=== PATIENT | female | born 1955 | race Caucasian/White ===

== ENCOUNTER → 2017-12-23 | Outpatient (REF) | payer MEDICARE | END | disposition home or self-care (01) | LOC: MAMMO 09:15 | PROVIDERS: ATTEND Nurse Practitioner Adult Health | DX: Z12.31 Encounter for screening mammogram for malignant neoplasm of breast (principal); N95.1 Menopausal and female climacteric states ==

== ENCOUNTER → 2018-06-01 | Outpatient (REF) | payer MEDICARE, MEDICAID ==
[2018-06-01 12:13] LABS: URINE BILIRUBIN - DIPSTICK NEGATIVE (NEGATIVE); URINE BLOOD DIPSTICK MODERATE (NEGATIVE); URINE COLOR YELLOW; URINE GLUCOSE - DIPSTICK NEGATIVE (NEGATIVE); URINE KETONE NEGATIVE (NEGATIVE); URINE LEUK ESTERASE NEGATIVE (NEGATIVE); URINE NITRITE - DIPSTICK NEGATIVE (Negative); URINE PROTEIN - DIPSTICK NEGATIVE (NEG-TRACE); URINE SPECIFIC GRAVITY 1.025; URINE UROBILINOGEN - DIPSTICK 0.2 E.U./dL (0.2)
[2018-06-01 12:21] LABS: HEMATOCRIT 47.2 % (37.0-47.0); IMMATURE GRANULOCYTES 0.8 % (0.0-5.0); MEAN CELL VOLUME 90.6 fL CALC (80.0-100.0); MEAN CORPUSCULAR HGB 28.8 pG CALC (26.0-32.0); MEAN CORPUSCULAR HGB CONC 31.8 g/L CALC (32.0-36.0); NEUT# 6.46 thou/uL (2.00-7.15); RED BLOOD COUNT 5.21 mill/uL (4.20-5.60); RED CELL DISTRI WIDTH 14.1 % (11.5-15.5)
[2018-06-01 12:34] LABS: URINE SQUAMOUS EPITHELIAL CELL MODERATE EPI/hpf (0-FEW)
[2018-06-01 12:45] LABS: ANION GAP 16 (6-22 (CALC)); BUN 11 mg/dL (7-17); BUN/CREATININE RATIO 15 (12-20 (CALC)); CALCULATED LDLCHOLESTEROL 98 mg/dL (62-129 (CALC)); CARBON DIOXIDE 24 mmol/l (22-30); CHLORIDE 106 mmol/l (95-108); CHOLESTEROL HDL RATIO 4.3 (<4.4 (CALC)); CREATININE 0.8 mg/dL (0.5-1.0); GFR > 60 ML/MIN (>=60 (CALC)); GFR FOR AFR.AMER. > 60 ML/MIN (>=60 (CALC)); HDL CHOLESTEROL 39 mg/dL (>=40); POTASSIUM 5.1 mmol/l (3.5-5.1); SODIUM 140 mmol/l (137-146); TOTAL CHOLESTEROL 169 mg/dl (0-199); TOTAL TRIGLYCERIDES 160 mg/dl (30-149); VLDL CHOLESTROL 32 mg/dl (1-41 (CALC))
== END | disposition home or self-care (01) ==
LOC: LAB 11:05
PROVIDERS: ATTEND Nurse Practitioner Family
DX: E78.2 Mixed hyperlipidemia (principal); I10 Essential (primary) hypertension; R10.10 Upper abdominal pain, unspecified

== ENCOUNTER → 2018-06-06 | Outpatient (REF) | payer MEDICARE, MEDICAID | END | disposition home or self-care (01) | LOC: MRI 10:02 | DX: Z86.73 Personal history of transient ischemic attack (TIA), and cerebral infarction without residual deficits (principal); R41.3 Other amnesia; I65.23 Occlusion and stenosis of bilateral carotid arteries; G81.91 Hemiplegia, unspecified affecting right dominant side ==

== ENCOUNTER → 2018-06-08 | Outpatient (REF) | payer MEDICARE, MEDICAID | END | disposition home or self-care (01) | LOC: CT 08:34 | PROVIDERS: ATTEND Nurse Practitioner Family | DX: R10.9 Unspecified abdominal pain (principal); K57.30 Diverticulosis of large intestine without perforation or abscess without bleeding | CPT/HCPCS: Q9967 ==

== ENCOUNTER 2018-08-05 16:39 | Emergency (ER) | payer MEDICARE, MEDICAID ==
[~2018-08-05] VITALS: Ht 152.4 cm; Wt 70.0 kg
[2018-08-05 16:39] VITALS: BP 133/74
[2018-08-05] MEDS ORDERED: BENAZEPRIL10 MG PO (16:51)
[2018-08-05] MEDS ORDERED: LIPITOR20 M1 PO (16:52)
[2018-08-05] MEDS ORDERED: KLONOPIN0.5 M1 PO (16:52)
[2018-08-05] MEDS ORDERED: ASPIRIN325 MG PO (16:53)
[2018-08-05] MEDS ORDERED: CLOPIDOGREL75 MG PO (16:53)
[2018-08-05] MEDS ORDERED: AMLODIPINE5 MG PO (16:53)
[2018-08-05] MEDS ORDERED: BENAZEPRIL HCL40 MG PO (17:16)
[2018-08-05] MEDS ORDERED: ATORVASTATIN CA20 MG PO (17:16)
[2018-08-05] MEDS ORDERED: ASPIRIN EC325 MG PO (17:18)
== END 2018-08-05 18:15 | disposition left against medical advice (07) ==
LOC: ED 16:39
DX: R05 Cough (principal); B34.9 Viral infection, unspecified; I10 Essential (primary) hypertension; F17.210 Nicotine dependence, cigarettes, uncomplicated; Z86.73 Personal history of transient ischemic attack (TIA), and cerebral infarction without residual deficits; Z91.19 Patient's noncompliance with other medical treatment and regimen

== ENCOUNTER 2019-01-30 16:21 | Inpatient (IN) | payer MEDICARE, MEDICAID ==
[2019-01-30] VITALS (10 sets, daily range): BP systolic 80–164; BP diastolic 45–83
[~2019-01-30] VITALS: Ht 152.4 cm; Wt 70.5 kg
[~2019-01-30 16:21] MED LIST: AMLODIPINE5 MG PO; ASPIRIN EC325 MG PO; ASPIRIN325 MG PO; ATORVASTATIN CA20 MG PO; BENAZEPRIL HCL40 MG PO; BENAZEPRIL10 MG PO; CLOPIDOGREL75 MG PO; KLONOPIN0.5 M1 PO; LIPITOR20 M1 PO
[2019-01-30 17:01] LABS: HEMOGLOBIN 14.6 g/dl (12.0-16.0); MEAN CELL VOLUME 90.2 fL CALC (80.0-100.0); MEAN CORPUSCULAR HGB 29.3 pG CALC (26.0-32.0); MEAN CORPUSCULAR HGB CONC 32.4 g/L CALC (32.0-36.0); NEUT# 10.5 thou/uL (2.00-7.15); RED BLOOD COUNT 4.99 mill/uL (4.20-5.60); RED CELL DISTRI WIDTH 13.9 % (11.5-15.5)
[2019-01-30 17:21] LABS: ANION GAP 18 (6-22 (CALC)); BUN 15 mg/dL (8-23); BUN/CREATININE RATIO 16 (12-20 (CALC)); CARBON DIOXIDE 21 mmol/l (22-30); CHLORIDE 107 mmol/l (95-108); CREATININE 0.9 mg/dL (0.5-1.0); GFR > 60 ML/MIN (>=60 (CALC)); GFR FOR AFR.AMER. > 60 ML/MIN (>=60 (CALC)); POTASSIUM 4.5 mmol/l (3.5-5.1); SODIUM 142 mmol/l (137-146)
[2019-01-31] VITALS (24 sets, daily range): BP systolic 85–116; BP diastolic 47–69
[2019-01-31 09:34] LABS: ALBUMIN 3.6 g/dL (3.2-5.0); ALKALINE PHOSPHATASE 67 u/l (38-126); BILIRUBIN, TOTAL 0.2 mg/dL (0.0-1.4); BUN 15 mg/dL (8-23); BUN/CREATININE RATIO 20 (12-20 (CALC)); CHLORIDE 114 mmol/l (95-108); CREATININE 0.8 mg/dL (0.5-1.0); GFR > 60 ML/MIN (>=60 (CALC)); GFR FOR AFR.AMER. > 60 ML/MIN (>=60 (CALC)); POTASSIUM 4.6 mmol/l (3.5-5.1); SGOT/AST 19 u/l (9-36); SODIUM 139 mmol/l (137-146); TOTAL PROTEIN 6.2 g/dL (6.3-8.2)
[2019-01-31 09:35] LABS: ANION GAP 14 (6-22 (CALC)); CARBON DIOXIDE 16 mmol/l (22-30)
[2019-01-31 09:37] LABS: IMMATURE GRANULOCYTES 0.9 % (0.0-5.0); MEAN CELL VOLUME 90.9 fL CALC (80.0-100.0); MEAN CORPUSCULAR HGB 29.6 pG CALC (26.0-32.0); MEAN CORPUSCULAR HGB CONC 32.5 g/L CALC (32.0-36.0); NEUT# 17.72 thou/uL (2.00-7.15); RED BLOOD COUNT 4.06 mill/uL (4.20-5.60); RED CELL DISTRI WIDTH 14.2 % (11.5-15.5)
[2019-01-31 09:49] LABS: HEMATOCRIT 36.9 % (37.0-47.0)
[2019-02-01] VITALS (55 sets, daily range): BP systolic 92–137; BP diastolic 52–68
[2019-02-01 06:18] LABS: HEMATOCRIT 33.7 % (37.0-47.0); HEMOGLOBIN 10.7 g/dl (12.0-16.0); MEAN CELL VOLUME 92.3 fL CALC (80.0-100.0); MEAN CORPUSCULAR HGB 29.3 pG CALC (26.0-32.0); MEAN CORPUSCULAR HGB CONC 31.8 g/L CALC (32.0-36.0); RED BLOOD COUNT 3.65 mill/uL (4.20-5.60); RED CELL DISTRI WIDTH 14.6 % (11.5-15.5)
[2019-02-01 06:43] LABS: ANION GAP 11 (6-22 (CALC)); BUN 14 mg/dL (8-23); BUN/CREATININE RATIO 18 (12-20 (CALC)); CARBON DIOXIDE 17 mmol/l (22-30); CHLORIDE 117 mmol/l (95-108); CREATININE 0.8 mg/dL (0.5-1.0); GFR > 60 ML/MIN (>=60 (CALC)); GFR FOR AFR.AMER. > 60 ML/MIN (>=60 (CALC)); POTASSIUM 4.1 mmol/l (3.5-5.1); SODIUM 141 mmol/l (137-146)
[2019-02-02] VITALS (12 sets, daily range): BP systolic 118–153; BP diastolic 60–74
[2019-02-02 05:02] LABS: HEMATOCRIT 34.5 % (37.0-47.0); HEMOGLOBIN 11.2 g/dl (12.0-16.0); MEAN CELL VOLUME 90.8 fL CALC (80.0-100.0); MEAN CORPUSCULAR HGB 29.5 pG CALC (26.0-32.0); MEAN CORPUSCULAR HGB CONC 32.5 g/L CALC (32.0-36.0); RED BLOOD COUNT 3.8 mill/uL (4.20-5.60); RED CELL DISTRI WIDTH 14.8 % (11.5-15.5)
[2019-02-02 05:20] LABS: ALBUMIN 3.4 g/dL (3.2-5.0); ALKALINE PHOSPHATASE 51 u/l (38-126); BUN 19 mg/dL (8-23); BUN/CREATININE RATIO 24 (12-20 (CALC)); CHLORIDE 118 mmol/l (95-108); CREATININE 0.8 mg/dL (0.5-1.0); GFR > 60 ML/MIN (>=60 (CALC)); GFR FOR AFR.AMER. > 60 ML/MIN (>=60 (CALC)); POTASSIUM 3.5 mmol/l (3.5-5.1); SODIUM 147 mmol/l (137-146); TOTAL PROTEIN 5.9 g/dL (6.3-8.2)
[2019-02-02 05:36] LABS: ANION GAP 11 (6-22 (CALC)); BILIRUBIN, TOTAL 0.3 mg/dL (0.0-1.4); CARBON DIOXIDE 22 mmol/l (22-30); SGOT/AST 39 u/l (9-36)
[2019-02-03 04:35] VITALS: BP 123/68
[2019-02-03 11:25] VITALS: BP 136/75
[2019-02-03] MEDS ORDERED: SYMBICORT1 AE1 IN (12:40)
[2019-02-03] MEDS ORDERED: LEVAQUIN750 MG PO (12:40)
[2019-02-03] MEDS ORDERED: PREDNISONE10 MG PO (12:40)
[2019-02-03] MEDS ORDERED: PROAIR HFA108 MCG/AC (12:41)
[2019-02-03] MEDS ORDERED: EPIPEN 2-P0.3 MG/0.3 IM (12:42)
[2019-02-03] MEDS ORDERED: IPRATROPIU0.5 MG/3 M NEB (12:42)
== END 2019-02-03 13:36 | disposition home or self-care (01) | DRG 915 ==
LOC: ED 16:21 → ED-I 17:34 → ED 17:35 → ICU 17:36 → MS2 02-02 17:18
PROVIDERS: Family Medicine; Internal Medicine; ADMIT Internal Medicine; ATTEND Internal Medicine
PROC: 02HV33Z Insertion of Infusion Device into Superior Vena Cava, Percutaneous Approach (ICD-10-PCS; principal; 2019-01-30)
PROC: 0BH17EZ Insertion of Endotracheal Airway into Trachea, Via Natural or Artificial Opening (ICD-10-PCS; 2019-01-30)
PROC: 5A1945Z Respiratory Ventilation, 24-96 Consecutive Hours (ICD-10-PCS; 2019-01-30)
PROC: 0T9B70Z Drainage of Bladder with Drainage Device, Via Natural or Artificial Opening (ICD-10-PCS; 2019-01-30)
DX: T78.3XXA Angioneurotic edema, initial encounter (principal); J96.00 Acute respiratory failure, unspecified whether with hypoxia or hypercapnia; I10 Essential (primary) hypertension; I25.10 Atherosclerotic heart disease of native coronary artery without angina pectoris; F17.210 Nicotine dependence, cigarettes, uncomplicated; T46.4X5A Adverse effect of angiotensin-converting-enzyme inhibitors, initial encounter; Z86.73 Personal history of transient ischemic attack (TIA), and cerebral infarction without residual deficits
CPT/HCPCS: J1650; J2060

== ENCOUNTER 2020-03-05 10:33 | Emergency (ER) | payer MEDICARE, MEDICAID ==
[~2020-03-05] VITALS: Ht 152.4 cm; Wt 73.0 kg
[~2020-03-05 10:33] MED LIST changes: +EPIPEN 2-P0.3 MG/0.3 IM; +IPRATROPIU0.5 MG/3 M NEB; +LEVAQUIN750 MG PO; +PREDNISONE10 MG PO; +PROAIR HFA108 MCG/AC; +SYMBICORT1 AE1 IN
[2020-03-05] MEDS ORDERED: HYDROCO/APAP1 TA9 PO (11:28)
[2020-03-05 12:13] VITALS: BP 138/66
== END 2020-03-05 12:13 | disposition home or self-care (01) ==
LOC: ED 10:33
DX: S62.002A Unspecified fracture of navicular [scaphoid] bone of left wrist, initial encounter for closed fracture (principal); I10 Essential (primary) hypertension; F17.200 Nicotine dependence, unspecified, uncomplicated; W20.8XXA Other cause of strike by thrown, projected or falling object, initial encounter; Y93.E2 Activity, laundry; Y92.009 Unspecified place in unspecified non-institutional (private) residence as the place of occurrence of the external cause; Z86.73 Personal history of transient ischemic attack (TIA), and cerebral infarction without residual deficits

== ENCOUNTER 2020-06-18 | Observation (INO) | payer MEDICARE, MEDICAID ==
[~2020-06-18] MED LIST changes: -AMLODIPINE5 MG PO; +HYDROCO/APAP1 TA9 PO; +NORVASC5 M1 PO
[2020-06-18 13:53] LABS: GFR 50 ML/MIN (>=60 (CALC)); GFR FOR AFR.AMER. > 60 ML/MIN (>=60 (CALC))
[2020-06-18 13:57] LABS: HEMATOCRIT 40.4 % (37.0-47.0); HEMOGLOBIN 13.4 g/dl (12.0-16.0); IMMATURE GRANULOCYTES 1.2 % (0.0-5.0); MEAN CELL VOLUME 90.4 fL CALC (80.0-100.0); MEAN CORPUSCULAR HGB CONC 33.2 g/dL CAL (32.0-36.0); NEUT# 7.64 thou/uL (2.00-7.15); RED BLOOD COUNT 4.47 mill/uL (4.20-5.60); RED CELL DISTRI WIDTH 13.9 % (11.5-15.5)
[2020-06-18 14:23] LABS: INTERNATIONAL NORMALIZED RATIO 0.9 RATIO (0.7-1.3); PROTHROMBIN TIME 9.4 SECONDS (9.0-12.5)
[2020-06-18 14:25] LABS: ALBUMIN 4.8 g/dL (3.2-5.0); ALKALINE PHOSPHATASE 74 u/l (38-126); ANION GAP 16 (6-22 (CALC)); BUN 18 mg/dL (8-23); BUN/CREATININE RATIO 19 (12-20 (CALC)); CARBON DIOXIDE 25 mmol/l (22-30); CHLORIDE 103 mmol/l (95-108); GFR 56 ML/MIN (>=60 (CALC)); GFR FOR AFR.AMER. > 60 ML/MIN (>=60 (CALC)); POTASSIUM 4.5 mmol/l (3.5-5.1); SGOT/AST 29 u/l (9-36); SODIUM 140 mmol/l (137-146); TOTAL PROTEIN 7.6 g/dL (6.3-8.2)
[2020-06-18 14:35] LABS: BILIRUBIN, TOTAL 0.6 mg/dL (0.0-1.4)
[2020-06-18] MEDS ORDERED: METOPROL TAR25 MG PO (15:57)
[2020-06-18] MEDS ORDERED: ANORO ELLIPTA 61 AER IN (15:59)
[2020-06-18] MEDS ORDERED: ARNUITY EL50 MCG/ACT IN (16:01)
[2020-06-18 17:45] VITALS: BP 125/65
[2020-06-18 20:00] VITALS: BP 145/64
[2020-06-18 22:00] VITALS: BP 125/58
[2020-06-19] VITALS (7 sets, daily range): BP systolic 118–156; BP diastolic 55–71
[2020-06-19 06:22] LABS: HEMATOCRIT 43.4 % (37.0-47.0); HEMOGLOBIN 13.8 g/dl (12.0-16.0); MEAN CELL VOLUME 91.9 fL CALC (80.0-100.0); MEAN CORPUSCULAR HGB 29.2 pG CALC (26.0-32.0); MEAN CORPUSCULAR HGB CONC 31.8 g/dL CAL (32.0-36.0); RED BLOOD COUNT 4.72 mill/uL (4.20-5.60); RED CELL DISTRI WIDTH 13.8 % (11.5-15.5)
[2020-06-19 06:42] LABS: ANION GAP 14 (6-22 (CALC)); BUN 15 mg/dL (8-23); BUN/CREATININE RATIO 20 (12-20 (CALC)); CALCULATED LDLCHOLESTEROL 64 mg/dL (62-129 (CALC)); CARBON DIOXIDE 23 mmol/l (22-30); CHLORIDE 105 mmol/l (95-108); CHOLESTEROL HDL RATIO 3.6 (<4.4 (CALC)); CREATININE 0.7 mg/dL (0.5-1.0); GFR > 60 ML/MIN (>=60 (CALC)); GFR FOR AFR.AMER. > 60 ML/MIN (>=60 (CALC)); HDL CHOLESTEROL 43 mg/dL (>=40); MAGNESIUM 2.1 mg/dL (1.6-2.3); POTASSIUM 4.5 mmol/l (3.5-5.1); SODIUM 138 mmol/l (137-146); TOTAL CHOLESTEROL 155 mg/dl (0-199); TOTAL TRIGLYCERIDES 239 mg/dl (30-149); VLDL CHOLESTROL 48 mg/dl (1-41 (CALC))
[2020-11-01] MEDS ORDERED: MAALOX PO (09:24)
[2020-11-01] MEDS ORDERED: CALCIUM600 M1 PO (09:24)
[2020-11-01] MEDS ORDERED: GAS X PO (09:24)
[2020-11-01] MEDS ORDERED: MULTI VIT PO (09:25)
[2020-11-01] MEDS ORDERED: ANTACID750 M1 PO (09:25)
[2020-11-01] MEDS ORDERED: VITAMIN D325 MCG (09:25)
== END 2020-06-19 13:55 | disposition home or self-care (01) ==
PROVIDERS: Family Medicine; Nurse Practitioner; ADMIT Internal Medicine
DX: G45.9 Transient cerebral ischemic attack, unspecified (principal); I69.951 Hemiplegia and hemiparesis following unspecified cerebrovascular disease affecting right dominant side; I10 Essential (primary) hypertension; J44.9 Chronic obstructive pulmonary disease, unspecified; I25.10 Atherosclerotic heart disease of native coronary artery without angina pectoris; E78.5 Hyperlipidemia, unspecified; Z79.02 Long term (current) use of antithrombotics/antiplatelets; Z79.82 Long term (current) use of aspirin; Z20.822 Contact with and (suspected) exposure to COVID-19
CPT/HCPCS: J1650; Q9967

== ENCOUNTER 2021-01-14 08:24 | Day surgery (SDC) | payer MEDICARE, MEDICAID ==
[~2021-01-14] VITALS: Ht 152.4 cm; Wt 72.6 kg
[~2021-01-14 08:24] MED LIST changes: +ANORO ELLIPTA 61 AER IN; +ANTACID750 M1 PO; +ARNUITY EL50 MCG/ACT IN; +CALCIUM600 M1 PO; +GAS X PO; +MAALOX PO; +METOPROL TAR25 MG PO; +MULTI VIT PO; +MURO 1282 % OU; +STOOL SOFTENER100 M1 PO; +VENTOLIN HFA IN; +VITAMIN D325 MCG PO
[2021-01-14] MEDS ORDERED: OMEPRAZOLE20 MG PO (10:05)
[2021-01-14 10:37] VITALS: BP 129/59
== END 2021-01-14 10:45 | disposition home or self-care (01) ==
LOC: ENDO 08:24 → ORM 11:25
PROVIDERS: ATTEND Surgery
PROC: 0DB48ZX Excision of Esophagogastric Junction, Via Natural or Artificial Opening Endoscopic, Diagnostic (ICD-10-PCS; principal; 2021-01-14)
PROC: 0DB78ZX Excision of Stomach, Pylorus, Via Natural or Artificial Opening Endoscopic, Diagnostic (ICD-10-PCS; 2021-01-14)
DX: K29.50 Unspecified chronic gastritis without bleeding (principal); K20.80 Other esophagitis without bleeding; K44.9 Diaphragmatic hernia without obstruction or gangrene; I10 Essential (primary) hypertension; K76.89 Other specified diseases of liver; J44.9 Chronic obstructive pulmonary disease, unspecified

== ENCOUNTER 2021-10-12 21:37 | Emergency (ER) | payer MEDICARE, MEDICAID ==
[2021-10-12] VITALS (8 sets, daily range): BP systolic 100–143; BP diastolic 49–109
[~2021-10-12] VITALS: Ht 152.4 cm; Wt 76.0 kg
[~2021-10-12 21:37] MED LIST changes: +OMEPRAZOLE20 MG PO
[2021-10-12 22:16] LABS: HEMATOCRIT 38.8 % (37.0-47.0); HEMOGLOBIN 12.9 g/dl (12.0-16.0); IMMATURE GRANULOCYTES 0.8 % (0.0-5.0); MEAN CELL VOLUME 90.2 fL CALC (80.0-100.0); MEAN CORPUSCULAR HGB CONC 33.2 g/dL CAL (32.0-36.0); NEUT# 7.12 thou/uL (2.00-7.15); RED BLOOD COUNT 4.3 mill/uL (4.20-5.60); RED CELL DISTRI WIDTH 14.2 % (11.5-15.5)
[2021-10-12] MEDS ORDERED: PROTONIX40 M2 PO (22:16)
[2021-10-12] MEDS ORDERED: METFORMIN500 M2 PO (22:21)
[2021-10-12] MEDS ORDERED: 24HR ALLERGY R180 MG (22:22)
[2021-10-12 22:31] LABS: ALBUMIN 4.4 g/dL (3.2-5.0); ALKALINE PHOSPHATASE 78 u/l (38-126); ANION GAP 13 (6-22 (CALC)); BUN 18 mg/dL (8-23); BUN/CREATININE RATIO 20 (12-20 (CALC)); CARBON DIOXIDE 25 mmol/l (22-30); CHLORIDE 104 mmol/l (95-108); CPK 31 u/l (30-165); CREATININE 0.9 mg/dL (0.5-1.0); GFR FOR AFR.AMER. > 60 ML/MIN (>=60 (CALC)); GFR OTHER RACES > 60 ML/MIN (>=60 (CALC)); LIPASE 168 u/l (23-300); POTASSIUM 4.4 mmol/l (3.5-5.1); SGOT/AST 29 u/l (9-36); SODIUM 138 mmol/l (137-146); TOTAL PROTEIN 7.2 g/dL (6.3-8.2)
[2021-10-12 22:32] LABS: BILIRUBIN, TOTAL 0.2 mg/dL (0.0-1.4)
[2021-10-13] VITALS (23 sets, daily range): BP systolic 114–154; BP diastolic 43–107
== END 2021-10-13 01:30 | disposition home or self-care (01) ==
LOC: ED 21:37
PROVIDERS: Internal Medicine
DX: R07.9 Chest pain, unspecified (principal); I10 Essential (primary) hypertension; K21.9 Gastro-esophageal reflux disease without esophagitis; J44.9 Chronic obstructive pulmonary disease, unspecified; Z86.73 Personal history of transient ischemic attack (TIA), and cerebral infarction without residual deficits

== ENCOUNTER 2023-11-19 07:25 | Day surgery (SDC) | payer MEDICARE, MEDICAID ==
[~2023-11-19] VITALS: Ht 152.4 cm; Wt 72.1 kg
[~2023-11-19 07:25] MED LIST changes: +24HR ALLERGY R180 MG; +ACETAMIN500 M2 PO; +BAYER ASPIRIN E81 MG PO; +BIOTIN1 MG PO; +COZAAR25 MG PO; +CYMBALTA30 MG PO; +GABAPENTIN100 MG PO; +METFORMIN500 M2 PO; +OMEPRAZOLE DR40 MG PO; +OXYBUTYNIN CHLOR5 M2 PO; +PROTONIX40 M2 PO; +TORADOL PO; +TRAMADOL HYDROC50 M1 PO
[2023-11-19] MEDS ORDERED: FAMOTIDINE 10MG/ML 2ML SDV IV ONE (07:34)
[2023-11-19] MEDS ORDERED: LACTATED RINGER'S 1,000 ML IV ONE (07:34)
[2023-11-19 08:36] VITALS: BP 165/84
[2023-11-19] MEDS ORDERED: LIDOCAINE HCL 2% 2ML SDV IV ONE (14:22)
[2023-11-19] MEDS ORDERED: PROPOFOL 200 MG/20 ML VIAL IV ONE (14:22)
== END 2023-11-19 08:55 | disposition home or self-care (01) ==
LOC: ENDO 07:25 → ORM 11:45
PROVIDERS: ATTEND Internal Medicine Gastroenterology
PROC: 0DB48ZX Excision of Esophagogastric Junction, Via Natural or Artificial Opening Endoscopic, Diagnostic (ICD-10-PCS; principal; 2023-11-19)
PROC: 0DB78ZX Excision of Stomach, Pylorus, Via Natural or Artificial Opening Endoscopic, Diagnostic (ICD-10-PCS; 2023-11-19)
DX: B37.81 Candidal esophagitis (principal); K29.70 Gastritis, unspecified, without bleeding; K44.9 Diaphragmatic hernia without obstruction or gangrene; K31.89 Other diseases of stomach and duodenum; I10 Essential (primary) hypertension; J44.9 Chronic obstructive pulmonary disease, unspecified; E78.5 Hyperlipidemia, unspecified; J45.909 Unspecified asthma, uncomplicated